=== PATIENT | male | born 1985 | race Caucasian/White ===

== ENCOUNTER 2017-05-05 05:52 | Emergency (ER) | payer SELFPAY ==
[~2017-05-05] VITALS: Ht 182.9 cm; Wt 81.6 kg
[2017-05-05 05:52] VITALS: BP 136/67
[2017-05-05] MEDS ORDERED: HYDROcodone/APAP 7.5/325MG 1 TAB TABLET PO ONE (06:30)
[2017-05-05] MEDS ORDERED: HYDR-971 PO (07:10)
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
--- NOTE | 2017-05-05 07:47 | RAD ---
Three views ANKLE LEFT 3V AP lateral oblique Clinical History: trauma/pain Comparison: None. Findings: The visualized osseous structures appear intact. There are 2 partially threaded screws through the medial malleolus. The tibiotalar relationship is normal. Impression: No acute findings.
== END 2017-05-05 07:55 | disposition home or self-care (01) ==
LOC: ER 05:52
DX: S93.432A Sprain of tibiofibular ligament of left ankle, initial encounter (principal); F17.210 Nicotine dependence, cigarettes, uncomplicated; W19.XXXA Unspecified fall, initial encounter; Y93.89 Activity, other specified; Y99.8 Other external cause status; Y92.89 Other specified places as the place of occurrence of the external cause
CPT/HCPCS: 29515; 73610; 99284-25

== ENCOUNTER 2018-11-06 15:13 | Emergency (ER) | payer BC ==
[~2018-11-06] VITALS: Ht 182.9 cm; Wt 77.1 kg
[~2018-11-06 15:13] MED LIST: HYDR-3165 PO
[2018-11-06] MEDS ORDERED: IV NORMAL SALINE 1,000ML 1,000 ML IV SCH (15:25)
[2018-11-06 15:31] VITALS: BP 132/92
[2018-11-06 15:55] LABS: BASO % 0 % (0-3); EOS # 0.2 x10^3/uL (0.0-0.7); EOS % 3 % (0-3); HEMATOCRIT 43.4 % (39.0-53.0); HEMOGLOBIN 14.6 g/dL (13.0-17.5); LYMPH # 1.7 x10^3/uL (1.0-4.8); LYMPH % 25 % (24-48); MEAN CORPUSCULAR HEMOGLOBIN 32 pg (25-35); MEAN CORPUSCULAR HGB CONC 34 g/dL (31-37); MEAN CORPUSCULAR VOLUME 94 fL (79-100); MONO # 0.6 x10^3/uL (0.0-1.1); MONO % 8 % (0-9); NEUT # 4.4 x10^3uL (1.8-7.7); NEUT % 64 % (31-73); PLATELET COUNT 240 x10^3/uL (140-400); RED CELL DISTRIBUTION WIDTH 13.3 % (11.5-14.5)
[2018-11-06] MEDS ORDERED: ONDANSETRON PF 4 MG/2 ML VIAL. IV ONE (15:55)
[2018-11-06 16:07] LABS: ALBUMIN 4.3 g/dL (3.4-5.0); CALCIUM 9.3 mg/dL (8.5-10.1); CREATININE 1.4 mg/dL (0.7-1.3); DIRECT BILIRUBIN 0.1 mg/dL (0.0-0.2); GFR 58.7; MAGNESIUM 1.8 mg/dL (1.8-2.4); POTASSIUM 3.5 mmol/L (3.5-5.1); TOTAL BILIRUBIN 0.5 mg/dL (0.2-1.0); TOTAL PROTEIN 7.5 g/dL (6.4-8.2)
[2018-11-06 17:13] LABS: BACTERIA,URINE 0 /HPF (0-FEW); BILIRUBIN,URINE NEG (NEG); CLARITY,URINE CLEAR; COLOR,URINE YELLOW; GLUCOSE,URINE NEG (NEG); NITRITE,URINE NEG (NEG); RBC,URINE 0 /HPF (0-2); SQUAMOUS EPITHELIAL CELL,UR OCC /LPF; UROBILINOGEN,URINE 0.2 mg/dL (0.2 mg/dL); WBC,URINE OCC /HPF (0-4)
[2018-11-06] MEDS ORDERED: MECL25TA3 PO (17:24)
[2018-11-06] MEDS ORDERED: ONDA4TAB7 PO (17:24)
--- NOTE | 2018-11-06 17:24 | PHYS DOC ---
Past History Past Medical History: No Pertinent History Past Surgical History: No Surgical History Alcohol Use: None Drug Use: None Adult General Chief Complaint Chief Complaint: HEAT EXPOSURE HPI HPI Patient is a 32-year-old male who presents after reportedly having syncopal episode at work. Patient states that he had been up working on a ladder when he became very dizzy and felt like he was completely off balance. He states that he was able to get down the ladder and then went inside to cool off. He states that he had bent over and then stood up and then everything just went dark and he had syncopal episode. He denies any chest pain or shortness of breath. He does indicate that he thought that maybe he was having a panic attack and took a half a milligram Xanax that he was prescribed. He states that he has had similar episodes in the past but they usually are resolved with Xanax. Currently he states that he feels off balance like he is on a very vickie boat.[] Review of Systems Review of Systems Constitutional: Denies fever or chills [] Eyes: Denies change in visual acuity, redness, or eye pain [] Respiratory: Denies cough or shortness of breath [] Cardiovascular: No additional information not addressed in HPI [] GI: Denies abdominal pain. Admits to nausea and vomiting. [] Neurologic: Denies headache, focal weakness or sensory changes. Complains of vertigo. [] All other systems were reviewed and found to be within normal limits, except as documented in this note. Current Medications Current Medications Current Medications Medications (Trade) Dose Ordered Sig/Kaylen Start Time Stop Time Status Last Admin Dose Admin Ondansetron HCl (Zofran) 4 mg 1X ONCE 11/06/18 15:55 11/06/18 15:56 DC 11/06/18 15:32 4 MG Sodium Chloride 1,000 ml @ 1,000 mls/hr Q1H 11/06/18 15:25 11/06/18 16:24 DC 11/06/18 15:32 1,000 MLS/HR Allergies Allergies Allergies Coded Allergies Type Severity Reaction Last Updated Verified No Known Drug Allergies 05/05/17 No Physical Exam Physical Exam Constitutional: Well developed, well nourished, no acute distress, non-toxic appearance. [] HENT: Normocephalic, atraumatic, bilateral external ears normal, oropharynx moist, no oral exudates, nose normal. [] Eyes: PERRLA, EOMI, conjunctiva normal, no discharge. [] Neck: Normal range of motion, no tenderness, supple, no stridor. [] Cardiovascular:Heart rate regular rhythm, no murmur [] Lungs & Thorax: Bilateral breath sounds clear to auscultation [] Abdomen: Bowel sounds normal, soft, no tenderness. [] Skin: Warm, dry, no erythema, no rash. [] Extremities: No tenderness, no cyanosis, no clubbing, ROM intact. [] Neurologic: Alert and oriented X 3, normal motor function, normal sensory function, no focal deficits noted. [] Current Patient Data Vital Signs Vital Signs Date Time Temp Pulse Resp B/P (MAP) Pulse Ox O2 Delivery O2 Flow Rate FiO2 11/06/18 15:31 98.4 90 22 99 Room Air Lab Results Laboratory Tests Test 11/06/18 14:57 11/06/18 15:27 11/06/18 16:35 Creatine Kinase 306 U/L (39-308) White Blood Count 7.0 x10^3/uL (4.0-11.0) Red Blood Count 4.60 x10^6/uL (4.30-5.70) Hemoglobin 14.6 g/dL (13.0-17.5) Hematocrit 43.4 % (39.0-53.0) Mean Corpuscular Volume 94 fL (79-100) Mean Corpuscular Hemoglobin 32 pg (25-35) Mean Corpuscular Hemoglobin Concent 34 g/dL (31-37) Red Cell Distribution Width 13.3 % (11.5-14.5) Platelet Count 240 x10^3/uL (140-400) Neutrophils (%) (Auto) 64 % (31-73) Lymphocytes (%) (Auto) 25 % (24-48) Monocytes (%) (Auto) 8 % (0-9) Eosinophils (%) (Auto) 3 % (0-3) Basophils (%) (Auto) 0 % (0-3) Neutrophils # (Auto) 4.4 x10^3uL (1.8-7.7) Lymphocytes # (Auto) 1.7 x10^3/uL (1.0-4.8) Monocytes # (Auto) 0.6 x10^3/uL (0.0-1.1) Eosinophils # (Auto) 0.2 x10^3/uL (0.0-0.7) Basophils # (Auto) 0.0 x10^3/uL (0.0-0.2) Sodium Level 140 mmol/L (136-145) Potassium Level 3.5 mmol/L (3.5-5.1) Chloride Level 101 mmol/L (98-107) Carbon Dioxide Level 30 mmol/L (21-32) Anion Gap 9 (6-14) Blood Urea Nitrogen 16 mg/dL (8-26) Creatinine 1.4 mg/dL (0.7-1.3) H Estimated GFR (Cockcroft-Gault) 58.7 Glucose Level 93 mg/dL (70-99) Calcium Level 9.3 mg/dL (8.5-10.1) Magnesium Level 1.8 mg/dL (1.8-2.4) Total Bilirubin 0.5 mg/dL (0.2-1.0) Direct Bilirubin 0.1 mg/dL (0.0-0.2) Aspartate Amino Transferase (AST) 39 U/L (15-37) H Alanine Aminotransferase (ALT) 55 U/L (16-63) Alkaline Phosphatase 100 U/L (46-116) Total Protein 7.5 g/dL (6.4-8.2) Albumin 4.3 g/dL (3.4-5.0) Urine Collection Type Unknown Urine Color Yellow Urine Clarity Clear Urine pH 7.0 Urine Specific Colbert 1.020 Urine Protein Neg (NEG-TRACE) Urine Glucose (UA) Neg mg/dL (NEG) Urine Ketones (Stick) Neg mg/dL (NEG) Urine Blood Neg (NEG) Urine Nitrite Neg (NEG) Urine Bilirubin Neg (NEG) Urine Urobilinogen Dipstick 0.2 mg/dL (0.2 mg/dL) Urine Leukocyte Esterase Neg (NEG) Urine RBC 0 /HPF (0-2) Urine WBC Occ /HPF (0-4) Urine Squamous Epithelial Cells Occ /LPF Urine Bacteria 0 /HPF (0-FEW) EKG EKG [] Radiology/Procedures Radiology/Procedures [] Course & Med Decision Making Course & Med Decision Making Pertinent Labs and Imaging studies reviewed. (See chart for details) [] Dragon Disclaimer Dragon Disclaimer This electronic medical record was generated, in whole or in part, using a voice recognition dictation system. Departure Departure: Impression: Primary Impression: Benign positional vertigo Additional Impressions: Vasovagal syncope Dehydration Disposition: 01 HOME, SELF-CARE Condition: STABLE Referrals: ARETHA MCBRIDE (PCP) Patient Instructions: Benign Positional Vertigo, Dehydration, Adult, Syncope Scripts Meclizine Hcl (MECLIZINE HCL) 25 Mg Tablet 1 TAB PO TID PRN for DIZZINESS, #15 TAB Prov: FELTON BARCLAY Jr. DO 11/06/18 Ondansetron Hcl (ZOFRAN) 4 Mg Tablet 4 MG PO Q6HRS PRN for NAUSEA, #12 TAB Prov: FELTON BARCLAY Jr. DO 11/06/18 Problem Qualifiers Primary Impression: Benign positional vertigo Laterality: unspecified laterality Qualified Codes: H81.10 - Benign paroxysmal vertigo, unspecified ear FELTON BARCLAY Jr. DO Nov 06, 2018 17:24
== END 2018-11-06 17:29 | disposition home or self-care (01) ==
LOC: ER 15:13
DX: H81.10 Benign paroxysmal vertigo, unspecified ear (principal); R55 Syncope and collapse; E86.0 Dehydration
CPT/HCPCS: 36415; 80048; 80076; 81001; 82550; 83735; 85025; 93005; 96361; 96374; 99285; J2405; J7030

== ENCOUNTER 2019-01-01 13:34 | Emergency (ER) | payer BC ==
[~2019-01-01 13:34] MED LIST changes: +MECL25TA3 PO; +ONDA4TAB7 PO
[2019-01-01 14:00] VITALS: BP 138/92
[2019-01-01] MEDS ORDERED: MECLIZINE 12.5 MG TABLET. PO PRN (14:15)
[2019-01-01] MEDS ORDERED: IV NORMAL SALINE 1,000ML 1,000 ML IV ONE (14:15)
[2019-01-01 14:37] LABS: BASO # 0.1 x10^3/uL (0.0-0.2); BASO % 1 % (0-3); EOS # 0.4 x10^3/uL (0.0-0.7); EOS % 6 % (0-3); HEMATOCRIT 43.1 % (39.0-53.0); HEMOGLOBIN 14.7 g/dL (13.0-17.5); LYMPH # 1.2 x10^3/uL (1.0-4.8); LYMPH % 18 % (24-48); MEAN CORPUSCULAR HEMOGLOBIN 32 pg (25-35); MEAN CORPUSCULAR HGB CONC 34 g/dL (31-37); MEAN CORPUSCULAR VOLUME 93 fL (79-100); MONO # 0.4 x10^3/uL (0.0-1.1); MONO % 6 % (0-9); NEUT # 4.5 x10^3uL (1.8-7.7); NEUT % 70 % (31-73); PLATELET COUNT 212 x10^3/uL (140-400); RED BLOOD COUNT 4.63 x10^6/uL (4.30-5.70); RED CELL DISTRIBUTION WIDTH 13.2 % (11.5-14.5); WHITE BLOOD COUNT 6.4 x10^3/uL (4.0-11.0)
[2019-01-01 14:47] LABS: ALBUMIN 4.3 g/dL (3.4-5.0); ALBUMIN/GLOBULIN RATIO 1.3 (1.0-1.7); CALCIUM 9.5 mg/dL (8.5-10.1); CREATININE 1.1 mg/dL (0.7-1.3); GFR 77.1; POTASSIUM 3.9 mmol/L (3.5-5.1); TOTAL BILIRUBIN 0.4 mg/dL (0.2-1.0); TOTAL PROTEIN 7.7 g/dL (6.4-8.2)
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
[2019-01-01] MEDS ORDERED: MECL12.52 PO (15:58)
[2019-01-01 16:00] LABS: BACTERIA,URINE 0 /HPF (0-FEW); BILIRUBIN,URINE NEG (NEG); CLARITY,URINE CLEAR; COLOR,URINE YELLOW; GLUCOSE,URINE NEG (NEG); NITRITE,URINE NEG (NEG); RBC,URINE 0 /HPF (0-2); SQUAMOUS EPITHELIAL CELL,UR OCC /LPF; UROBILINOGEN,URINE 0.2 mg/dL (0.2 mg/dL); WBC,URINE 0 /HPF (0-4)
== END 2019-01-01 16:19 | disposition home or self-care (01) ==
LOC: ER 13:34
DX: T67.5XXA Heat exhaustion, unspecified, initial encounter (principal); R42 Dizziness and giddiness; R11.2 Nausea with vomiting, unspecified; X30.XXXA Exposure to excessive natural heat, initial encounter; Y93.89 Activity, other specified; Y92.89 Other specified places as the place of occurrence of the external cause; Y99.8 Other external cause status
CPT/HCPCS: 36415; 80053; 81001; 85025; 99284; J7030

== ENCOUNTER → 2021-08-30 | Outpatient (CLI) | payer OTHER ==
[~2021-08-30] MED LIST changes: +DIAZ5TAB PO; +IBUP-571 PO; +MECL-75 PO; +MECL12.582 PO; -MECL25TA3 PO
--- NOTE | 2021-08-30 12:48 | RAD ---
Complete abdominal ultrasound 08/30/2021 11:07 AM Clinical History: Right upper quadrant pain, diarrhea Technique: Ultrasound examination of the abdomen was performed, and multiple static images were subm itted for review. Comparison: CT of the pelvis April 30, 2008 Findings: The visualized portions of the pancreas are within normal limits. The visualized aorta and IVC are un remarkable. The liver demonstrates diffuse increase in echogenicity which while nonspecific, most commonly relate s to hepatic steatosis. Sonographic Pettit's sign is negative. The liver is top normal in size measur ing 17 cm longitudinally no intrahepatic biliary ductal dilatation is seen. Portal venous flows in th e normal direction. No focal hepatic lesions are identified. The gallbladder demonstrates no evidence of wall thickening, stones, or sludge. The right kidney is normal in appearance measuring 9.7 cm in length. The common bile duct is nondilated measuring between 2 and 3 mm in diameter. Spleen is top normal in size measuring 11 cm longitudinally. Left kidney is unremarkable in appearanc e measuring 9.7 cm in length. IMPRESSION 1. Probable hepatic steatosis 2. No sonographic evidence of acute intra-abdominal normality Electronically signed by: Eddie Butler MD (08/30/2021 12:45 PM) [id number]
== END ==
LOC: US 11:00
PROVIDERS: ATTEND Internal Medicine
DX: K90.9 Intestinal malabsorption, unspecified (principal); R19.7 Diarrhea, unspecified; K82.9 Disease of gallbladder, unspecified
CPT/HCPCS: 76700

== ENCOUNTER 2021-09-01 15:38 | Emergency (ER) | payer BC, OTHER ==
[~2021-09-01] VITALS: Ht 365.8 cm; Wt 88.0 kg
[~2021-09-01 15:38] MED LIST changes: -DIAZ5TAB PO; -IBUP-571 PO
[2021-09-01 15:49] VITALS: BP 152/91
[2021-09-01] MEDS ORDERED: ONDANSETRON PF 4 MG/2 ML VIAL. IVP ONE (16:00)
[2021-09-01] MEDS ORDERED: IV NORMAL SALINE 1,000ML 1,000 ML IV ONE (16:00)
[2021-09-01] MEDS ORDERED: KETOROLAC 15 MG/ML VIAL. IVP ONE (16:00)
--- NOTE | 2021-09-01 16:13 | PHYS DOC ---
Past History Past Medical History: No Pertinent History Past Surgical History: Appendectomy Alcohol Use: None Drug Use: None Adult General Chief Complaint Chief Complaint: ABDOMINAL PAIN HPI HPI Patient is a 35-year-old male presenting to the emergency department for evaluation of right upper quadrant abdominal pain that he says has been an issue for months and he quit drinking alcohol cold turkey 3 months ago but still continues to have intermittent abdominal pain. He had an ultrasound 2 days ago with the following findings below and has been referred to hepatology from what he explained and he thinks his appointment is in 3 days on Saturday. He says today that he has been feeling spasms and sharp stabbing pain in his right upper quadrant and that this has made him very nervous and he admits that he has anxiety and is currently hyperverbal and hyperventilating and says that he feels tingling all over. Patient says that he has had an appendectomy but no other abdominal surgeries. He denies cough shortness of breath chest pain nausea vomiting or diaphoresis. He says that his pain does get worse whenever he moves his torso or takes a deep breath. He is in no acute distress with normal vital signs other than hypertension noted. IMPRESSION 1. Probable hepatic steatosis 2. No sonographic evidence of acute intra-abdominal normality Review of Systems Review of Systems Constitutional: Denies fever or chills [] Eyes: Denies change in visual acuity, redness, or eye pain [] HENT: Denies nasal congestion or sore throat [] Respiratory: Denies cough or shortness of breath [] Cardiovascular: No additional information not addressed in HPI [] GI: + abdominal pain. No nausea, vomiting, bloody stools or diarrhea [] : Denies dysuria or hematuria [] Musculoskeletal: Denies back pain or joint pain [] Integument: Denies rash or skin lesions [] Neurologic: Denies headache, focal weakness or sensory changes [] All other systems were reviewed and found to be within normal limits, except as documented in this note. Current Medications Current Medications Current Medications Medications (Trade) Dose Ordered Sig/Kaylen Start Time Stop Time Status Last Admin Dose Admin Iohexol (Omnipaque 300 Mg/ml) 75 ml 1X ONCE 09/01/21 16:15 09/01/21 16:16 UNV Ketorolac Tromethamine (Toradol 15mg Vial) 15 mg 1X ONCE 09/01/21 16:00 09/01/21 16:01 DC Lorazepam (Ativan Inj) 1.5 mg 1X ONCE 09/01/21 16:00 09/01/21 16:01 DC Ondansetron HCl (Zofran) 4 mg 1X ONCE 09/01/21 16:00 09/01/21 16:01 DC Sodium Chloride 1,000 ml @ 1,000 mls/hr 1X ONCE 09/01/21 16:00 09/01/21 16:59 Allergies Allergies Allergies Coded Allergies Type Severity Reaction Last Updated Verified No Known Drug Allergies 05/05/17 No Physical Exam Physical Exam Constitutional: Well developed, well nourished, no acute distress, non-toxic appearance. [] HENT: Normocephalic, atraumatic, bilateral external ears normal, oropharynx m oist, no oral exudates, nose normal. [] Eyes: PERRLA, EOMI, conjunctiva normal, no discharge. [] Neck: Normal range of motion, no tenderness, supple, no stridor. [] Cardiovascular:Heart rate regular rhythm, no murmur [] Lungs & Thorax: Bilateral breath sounds clear to auscultation [] Abdomen: Bowel sounds normal, soft, positive right upper quadrant and epigastric tenderness to palpation with no rebound or guarding. Skin: Warm, dry, no erythema, no rash. [] Back: No tenderness, no CVA tenderness. [] Extremities: No tenderness, no cyanosis, no clubbing, ROM intact, no edema. [] Neurologic: Alert and oriented X 3, normal motor function, normal sensory function, no focal deficits noted. [] Current Patient Data Vital Signs Vital Signs Date Time Temp Pulse Resp B/P (MAP) Pulse Ox O2 Delivery O2 Flow Rate FiO2 09/01/21 15:49 20 152/91 (111) 96 Room Air EKG EKG [] Radiology/Procedures Radiology/Procedures [] Heart Score C/O Chest Pain: No Risk Factors: Risk Factors: DM, Current or recent (<one month) smoker, HTN, HLP, family history of CAD, obesity. Risk Scores: Risk Factors: DM, Current or recent (<one month) smoker, HTN, HLP, family hi story of CAD, obesity. Course & Med Decision Making Course & Med Decision Making Patient is fixated on the hepatic steatosis and is very anxious about this diagnosis and nervous about what it could mean. Patient's pain is more consistent with a costochondritis or pleurisy or possibly abdominal wall strain given it is worse with movements and deep breaths and is a sharp stabbing pain. His PERC score is equal to 0 and he has no chest pain or symptoms consistent with acute coronary syndrome. He has pain on his abdominal exam but not on rib exam. I will check labs and imaging treat his symptoms and reassess. Of note mother called very concerned about her son and said that he had very elevated liver enzymes and want to send the lab results to us and we did receive the fax with his lab results from August 10 and appears that his AST was 36 which is in a normal range and his ALT was 62 which is higher than the upper limit of normal at 50. CT showed no acute surgical pathology and patient's stabbing pain resolved completely and he admits that he feels better but every once in a while he feels a spasm in his right upper quadrant. His repeat abdominal exam is benign and he continues to have completely normal vital signs. I discussed all incidental findings on labs and imaging and the need for follow-up and I recommended he keep his GI follow-up on Saturday. I will prescribe him Valium as a muscle relaxant for what I perceived to be more muscle spasms anything else at this time but told him that there is no definitive diagnosis and he will need follow- up and will need to return to the emergency department sooner if he has worsening pain fevers vomiting or other general concerns. I told there is no acute pathology detected at this time but he should return with any concerning symptoms. Patient aware and agreeable with plan for discharge and verbalized understanding of the need for short-term follow-up and strict ED return precautions discussed as above. Dragon Disclaimer Dragon Disclaimer This electronic medical record was generated, in whole or in part, using a voice recognition dictation system. Departure Departure: Impression: Primary Impression: Abdominal pain Disposition: HOME / SELF CARE / HOMELESS Condition: STABLE Referrals: ARETHA MCBRIDE (PCP) Patient Instructions: Abdominal Pain (Nonspecific) Scripts Ibuprofen (Ibu) 600 Mg Tablet 1 TAB PO Q6HRS for 7 Days, #28 TAB 0 Refills Prov: MERRY JEFFERSON DO 09/01/21 Diazepam (VALIUM) 5 Mg Tablet 5 MG PO TID PRN for MUSCLE SPASMS, #9 TAB Prov: MERRY JEFFERSON DO 09/01/21 Problem Qualifiers Primary Impression: Abdominal pain Abdominal location: right upper quadrant Qualified Codes: R10.11 - Right upper quadrant pain MERRY JEFFERSON DO September 01, 2021 16:13
[2021-09-01] MEDS ORDERED: IOHEXOL 300 MG/ML 75 ML VIAL. IV ONE (16:15)
[2021-09-01 16:47] LABS: BASO % 1 % (0-3); EOS # 0.1 x10^3/uL (0.0-0.7); EOS % 2 % (0-3); HEMATOCRIT 44.3 % (39.0-53.0); HEMOGLOBIN 15.4 g/dL (13.0-17.5); LYMPH # 1.4 x10^3/uL (1.0-4.8); LYMPH % 27 % (24-48); MEAN CORPUSCULAR HEMOGLOBIN 32 pg (25-35); MEAN CORPUSCULAR HGB CONC 35 g/dL (31-37); MEAN CORPUSCULAR VOLUME 92 fL (79-100); MONO # 0.5 x10^3/uL (0.0-1.1); MONO % 9 % (0-9); NEUT # 3.2 x10^3uL (1.8-7.7); NEUT % 62 % (31-73); PLATELET COUNT 195 x10^3/uL (140-400); RED BLOOD COUNT 4.83 x10^6/uL (4.30-5.70); RED CELL DISTRIBUTION WIDTH 13.4 % (11.5-14.5); WHITE BLOOD COUNT 5.2 x10^3/uL (4.0-11.0)
--- NOTE | 2021-09-01 16:51 | RAD ---
Exam: CT of abdomen and pelvis with contrast INDICATION: Right upper quadrant pain, hepatic steatosis TECHNIQUE: Sequential axial images through the abdomen and pelvis obtained following the administrati on of 75 mL of Isovue-370 IV contrast. Sagittal and coronal reformatted images were reconstructed fro m the axial data and reviewed. Exposure: One or more of the following in the visualized dose reduction techniques were utilized for this examination: 1. Automated exposure control 2. Adjustment of the MA and/or KV according to patient size 3. Use of iterative of reconstructive technique Comparisons: None FINDINGS: Heart size is normal. No pericardial effusion. Visualized lung bases are clear. No pleural effusion. Mild diffuse hepatic steatosis. Spleen, pancreas, gallbladder and adrenals are unremarkable. No perinephric inflammation or hydronephrosis. No renal or ureteral calculi are identified. Bladder is partially distended and appears thin-walled. Prostate is not enlarged. Large and small bowel are unremarkable. Appendix is absent. No free intra-abdominal air or fluid. No obstruction. Abdominal aorta has normal course and caliber. Abdominal vasculature is patent. No enlarged intra-abdominal lymph nodes are identified. No suspicious osseous lesions or acute fractures. IMPRESSION: No acute process identified within the abdomen or pelvis. Electronically signed by: Chuck Cho MD (09/01/2021 4:49 PM) [facility]
[2021-09-01 17:43] LABS: CALCIUM 9.8 mg/dL (8.5-10.1); CREATININE 1.2 mg/dL (0.7-1.3); GFR 68.9; POTASSIUM 3.2 mmol/L (3.5-5.1)
[2021-09-01 17:49] LABS: ALBUMIN 4.4 g/dL (3.4-5.0); ALBUMIN/GLOBULIN RATIO 1.4 (1.0-1.7); TOTAL BILIRUBIN 0.9 mg/dL (0.2-1.0); TOTAL PROTEIN 7.6 g/dL (6.4-8.2)
[2021-09-01] MEDS ORDERED: IBUP-571 PO (17:51)
[2021-09-01] MEDS ORDERED: DIAZ5TAB PO (17:51)
[2021-09-01 17:55] LABS: BACTERIA,URINE 0 /HPF (0-FEW); CLARITY,URINE CLEAR; COLOR,URINE YELLOW; GLUCOSE,URINE NEG (NEG); NITRITE,URINE NEG (NEG); RBC,URINE 0 /HPF (0-2); UROBILINOGEN,URINE 0.2 mg/dL (0.2 mg/dL); WBC,URINE 0 /HPF (0-4)
[2021-09-01] MEDS ORDERED: POTASSIUM CHLORIDE 20 MEQ TABLET.ER. PO ONE ×2 (18:00)
[2021-09-01] MEDS ORDERED: diazePAM 5 MG TABLET. PO ONE (18:00)
[2021-09-01] MEDS ORDERED: diazePAM 5 MG TABLET. ONE (18:01)
== END 2021-09-01 18:15 | disposition home or self-care (01) ==
LOC: ER 15:38
DX: R10.11 Right upper quadrant pain (principal); R10.13 Epigastric pain; Z90.89 Acquired absence of other organs
CPT/HCPCS: 36415; 74177; 80053; 81001; 83690; 85025; 96361; 96374; 96375; 99285; J1885; J2060; J2405; J7030; Q9967